=== PATIENT | female | born 1950 | race Caucasian/White ===

== ENCOUNTER 2018-11-23 11:21 | Inpatient (IN) | payer OTHER, MEDICAID ==
[~2018-11-23] VITALS: Ht 152.4 cm; Wt 128.8 kg
[2018-11-23 11:21] VITALS: BP_SYST 144
--- NOTE | 2018-11-23 11:21 | NUR ---
BROUGHT IN BY [facility] AND [facility]ACED IN BED #6, REPORT GIVEN TO DHRUV
--- NOTE | 2018-11-23 12:16 | NUR ---
Patient transported to radiology via gurney, accompanied by sprinkler repair technician.
--- NOTE | 2018-11-23 12:21 | NUR ---
Returned from radiology, back to [facility].
--- NOTE | 2018-11-23 12:24 | NUR ---
Patient is awake, alert, and oriented x4. Patient reports she was at her PMD office, felt dizzy and almost passed out. Her PMD instructed her to come to the hospital to rule out sepsis. Patient arrived via ambulance.
--- NOTE | 2018-11-23 12:39 | NUR ---
Patient was helped to restroom and instructed that we needed a urine sample.
[2018-11-23 13:05] LABS: BILIRUBIN,URINE NEGATIVE (NEGATIVE); BLOOD, URINE NEGATIVE (NEGATIVE); CLARITY/URINE CLEAR (CLEAR); COLOR,URINE YELLOW (YELLOW); GLUCOSE,URINE NEGATIVE (NEGATIVE); KETONES,URINE NEGATIVE (NEGATIVE); LEUKOCYTE ESTERASE ,URINE 1+ (NEGATIVE); NITRITE, URINE POSITIVE (NEGATIVE); PROTEIN URINE NEGATIVE (NEGATIVE); UROBILINOGEN,URINE 0.2 (0.2-1.0)
[2018-11-23 13:07] LABS: BASOPHILS # (AUTO) 0.1 K/uL (0.0-0.2); BASOPHILS % (AUTO) 0.4 % (0.0-2.0); EOSINOPHILS # (AUTO) 0.1 K/uL (0.0-0.4); EOSINOPHILS % (AUTO) 0.6 % (0.0-4.0); HEMATOCRIT 40.4 % (36-48); LYMPHOCYTES # (AUTO) 3.2 K/uL (1.0-5.5); LYMPHOCYTES % (AUTO) 15.9 % (20.5-51.5); MEAN CORPUSCULAR HEMOGLOBIN 29 pg (27-31); MEAN CORPUSCULAR HGB CONC 32 % (32-36); MEAN CORPUSCULAR VOLUME 89 fL (79.0-98.0); MONOCYTES # (AUTO) 1.4 K/uL (0.0-1.0); MONOCYTES % (AUTO) 6.9 % (1.7-9.3); NEUTROPHILS # (AUTO) 15.2 K/uL (1.8-7.7); NEUTROPHILS % (AUTO) 76.2 % (40.0-70.0); PLATELET COUNT (AUTO) 391 K/uL (130-430); RED BLOOD CELL COUNT(AUTO) 4.53 MIL/uL (4.2-6.2)
[2018-11-23 13:13] LABS: CREATININE 1.48 mg/dL (0.55-1.30); POTASSIUM 3.4 mmol/L (3.5-5.1)
[2018-11-23 13:16] LABS: INR 0.9 (0.8-1.2); PROTHROMBIN TIME 9.6 SECS (9.5-12.5)
[2018-11-23 13:18] LABS: ALBUMIN 3.6 g/dL (3.4-4.8); TOTAL BILIRUBIN 0.5 mg/dL (0.0-1.0)
[2018-11-23 13:28] LABS: BACTERIA,URINE MODERATE /HPF (None Seen); RBC,URINE 0-3 /HPF (0-3)
[2018-11-23 13:29] LABS: MUCUS,URINE None Seen /LPF (None Seen)
[2018-11-23] MEDS ORDERED: cefTRIAXone 1 GM IVPB PREMIX 50 ML IV ONE (13:45)
[2018-11-23] MEDS ORDERED: NACL 0.9% 2,000 ML IV ONE (13:45)
--- NOTE | 2018-11-23 13:59 | NUR ---
Pt reports she is full code.
[2018-11-23] MEDS ORDERED: LIP20 PO (14:13)
[2018-11-23] MEDS ORDERED: LISI10TA5 PO (14:13)
[2018-11-23] MEDS ORDERED: LOPE2CAP PO (14:13)
[2018-11-23] MEDS ORDERED: FURO80TA86 PO (14:13)
[2018-11-23] MEDS ORDERED: ASA81 PO (14:13)
[2018-11-23] MEDS ORDERED: ACET-2766 PO (14:13)
[2018-11-23] MEDS ORDERED: CHOL500037 PO (14:13)
[2018-11-23] MEDS ORDERED: LEVE750T4 PO (14:13)
[2018-11-23] MEDS ORDERED: FERR-69 PO (14:13)
[2018-11-23] MEDS ORDERED: BISA5TAB10 PO (14:13)
[2018-11-23] MEDS ORDERED: ALLO300T2 PO (14:13)
[2018-11-23] MEDS ORDERED: TRAM100T34 PO (14:13)
[2018-11-23] MEDS ORDERED: RANI-362 PO (14:13)
--- NOTE | 2018-11-23 14:17 | NUR ---
Medication reconciliation completed with information provided by pt. Any prior medication reconciliation on file was reviewed and corrected.
--- NOTE | 2018-11-23 14:38 | NUR ---
Patient will be admitted to care of Dr. Luu. Admitted to medsurg unit. Will go to room 134A. Belongings list completed. Summary report printed. Report will be given at bedside.
--- NOTE | 2018-11-23 14:53 | NUR ---
Patient transferred via SHIRA vaughn, RN. Report given to Queenie Hernandez RN for continuation of care.
--- NOTE | 2018-11-23 15:09 | NUR ---
ADMISSION: The patient, SAY HARRISON, 67 y/o, F admitted by JINNY HOPKINS MD, was given written information regarding hospital policies, unit procedures and contact persons.
[2018-11-23 15:10] VITALS: BP_SYST 134
[2018-11-23] MEDS: NACL 0.9% 1,000 ML IV SCH ×2 (15:20→18:37)
--- NOTE | 2018-11-23 15:49 | NUR ---
notes- in bed, watching tv. ordered snacks for patient. has mild pain on her back and neck. denies any chest pain or shortness of breath. oriented to call light use, phone and bathroom. safety precaution observed. enc. to call for help as needed.
[2018-11-23] MEDS ORDERED: ACETAMINOPHEN 325 MG TABLET PO PRN (16:15)
[2018-11-23] MEDS ORDERED: cloNIDine HCL 0.1 MG TABLET PO PRN (16:15)
[2018-11-23] MEDS ORDERED: hydrALAZINE HCL 20 MG/ML VIAL IVP PRN (16:15)
[2018-11-23] MEDS ORDERED: METOCLOPRAMIDE HCL 10 MG/2 ML VIAL IVP PRN (16:15)
[2018-11-23] MEDS ORDERED: BISACODYL 5 MG TABLET.DR (DULCOLAX) PO PRN (16:15)
[2018-11-23] MEDS ORDERED: ONDANSETRON HCL 4 MG/2 ML VIAL IVP PRN (16:15)
[2018-11-23 16:58] VITALS: BP_SYST 132
--- NOTE | 2018-11-23 18:53 | NUR ---
notes- In bed, denies any pain or discomfort. IVF infusing well. ambulate with assistance. all needs meet. needs attended. will endorse.
--- NOTE | 2018-11-23 19:50 | NUR ---
PM SHIFT ASSESSMENT Received patient sitting up in bed, aox4, vitals stable, denies any pain at this time, on room air, IV line to right ac intact and patent, IVF infusing. Plan of care discussed with patient, verbalized understanding, compliant, assisted to bathroom, steady gait noted, oriented to use call light for nurse assistance, call light within reach, safety and fall precautions in place, will monitor.
[2018-11-23 19:55] VITALS: BP_SYST 135
[2018-11-23] MEDS: levETIRAcetam 500 MG TABLET PO SCH (20:08)
[2018-11-23] MEDS: ATORVASTATIN 20 MG TABLET PO SCH (20:09)
--- NOTE | 2018-11-23 20:30 | NUR ---
RN ROUNDS Patient awake, assisted to bathroom again, steady gait noted, administered scheduled home medications, educated on use and side effects of each medication. Patient verbalized understanding.
--- NOTE | 2018-11-23 21:12 | NUR ---
PAGED PAGED DOCTOR VILA FOR ORDERS
--- NOTE | 2018-11-23 21:30 | NUR ---
Spoke to Dr. Barnes regarding patient has a history of diabetes, ACHS accu check ordered with regular insulin sliding scale.
[2018-11-23] MEDS ORDERED: D5W 1,000 ML IV PRN (21:37)
[2018-11-23] MEDS ORDERED: DEXTROSE 50% JECT 50 ML DISP.SYRIN IVP PRN (21:45)
[2018-11-23] MEDS ORDERED: GLUCOSE 15 GM GEL (in 37.5 GM TUBE) PO PRN (21:45)
--- NOTE | 2018-11-23 22:50 | NUR ---
RN ROUNDS Patient resting quietly in bed, in no distress, IVF infusing, call light remains within reach, will continue to monitor.
[2018-11-24] VITALS (7 sets, daily range): BP systolic 110–151
[2018-11-24] MEDS: MORPHINE 4 MG/ML INJ. SYRINGE IVP PRN ×4 (00:22→21:22)
--- NOTE | 2018-11-24 01:12 | NUR ---
RN ROUNDS Patient was c/o of generalized pain, medicated with morphine 2 mg IVP for pain management, patient sleeping at this time. Respirations even and unlabored, educated on side effects of morphine, patient verbalized understanding earlier. Vital signs stable. Safety precautions in place, call light remains within reach, will monitor.
--- NOTE | 2018-11-24 03:09 | NUR ---
RN ROUNDS Patient sleeping, respirations even and unlabored, IVF infusing, call light remains within reach, safety precautions in place, will continue to monitor.
[2018-11-24] MEDS: INSULIN REGULAR, HUMAN 100 UNITS/ML, 10 ML VIAL (novoLIN R) SUBCUT PRN ×4 (06:02→21:36)
[2018-11-24] MEDS: NACL 0.9% 1,000 ML IV SCH ×2 (06:03→15:48)
--- NOTE | 2018-11-24 06:47 | NUR ---
RN ROUNDS Patient awake and was c/o of generalized pain, medicated with morphine 2 mg IVP for pain management, re-educated on side effects of morphine, patient verbalized understanding earlier. blood sugar check this am of 245, covered with regular insulin sliding scale. Needs attended to, Safety precautions maintained, call light remains within reach, will monitor until report given to am nurse.
[2018-11-24 07:03] LABS: ALBUMIN 2.6 g/dL (3.4-4.8); CALCIUM 8.6 mg/dL (8.4-11.0); CREATININE 1.15 mg/dL (0.55-1.30); POTASSIUM 3.7 mmol/L (3.5-5.1); TOTAL BILIRUBIN 0.4 mg/dL (0.0-1.0)
[2018-11-24 07:14] LABS: BASOPHILS % (AUTO) 0.3 % (0.0-2.0); EOSINOPHILS # (AUTO) 0.1 K/uL (0.0-0.4); EOSINOPHILS % (AUTO) 0.7 % (0.0-4.0); HEMATOCRIT 33.3 % (36-48); HEMOGLOBIN 10.6 g/dL (12.0-16.0); LYMPHOCYTES # (AUTO) 2.7 K/uL (1.0-5.5); LYMPHOCYTES % (AUTO) 19.1 % (20.5-51.5); MEAN CORPUSCULAR HEMOGLOBIN 28 pg (27-31); MEAN CORPUSCULAR HGB CONC 32 % (32-36); MEAN CORPUSCULAR VOLUME 89 fL (79.0-98.0); MONOCYTES # (AUTO) 0.8 K/uL (0.0-1.0); MONOCYTES % (AUTO) 5.9 % (1.7-9.3); NEUTROPHILS # (AUTO) 10.4 K/uL (1.8-7.7); PLATELET COUNT (AUTO) 243 K/uL (130-430); RED BLOOD CELL COUNT(AUTO) 3.75 MIL/uL (4.2-6.2); RED CELL DISTRIBUTION WIDTH 14.8 % (9.0-15.0)
[2018-11-24] MEDS: ATORVASTATIN 20 MG TABLET PO SCH ×2 (08:24→21:25)
[2018-11-24] MEDS: ASPIRIN 81 MG TAB.CHEW PO SCH (08:24)
[2018-11-24] MEDS: levETIRAcetam 500 MG TABLET PO SCH ×2 (08:24→21:24)
--- NOTE | 2018-11-24 08:30 | NUR ---
Mobility Able to get out of bed to bathroom using holding IV pole , stanby assist by the RN tolerates well with out dizziness.
[2018-11-24] MEDS ORDERED: cefTRIAXone 1 GM VIAL IM ONE (09:00)
[2018-11-24] MEDS: cefTRIAXone 1 GM IVPB PREMIX 50 ML IV SCH (09:24)
--- NOTE | 2018-11-24 10:12 | NUR ---
Afebrile due antibiotic completed with out adverse reaction.
--- NOTE | 2018-11-24 10:25 | NUR ---
CONSULTATION PAGED REASON FOR CONSULTATION: DIZZINESS REQUESTING DR: DR HOPKINS CONSULTING DR: DR GOLDEN SPOKE WITH BUSTER
--- NOTE | 2018-11-24 10:28 | NUR ---
CONSULTATION PAGED REASON FOR CONSULTATION: RENAL FAILURE REQUESTING DR: DR HOPKINS CONSULTING DR: DR DALY SPOKE WITH MARISSA [phone]
--- NOTE | 2018-11-24 15:00 | NUR ---
PATIENT RESTING: Patient resting quietly. No acute distress noted. Vital signs within normal range.
--- NOTE | 2018-11-24 18:35 | NUR ---
Patient is afebrile, on hydration, fall safety/precaution initiated verbalized understanding
--- NOTE | 2018-11-25 01:27 | NUR ---
PAGED I PAGED DR. HOPKINS @ [id number] I SPOKE WITH ERIKA EATON
--- NOTE | 2018-11-25 02:38 | NUR ---
PAGED I PAGEDDYazmin HOPKINS @ [phone] JOHN I SPOKE WITH CAITLIN EATON I CALLED DORA BECAUSE SHE COVERS FOR DR. HOPKINS I CALLED DR. HOPKINS @ [phone] HE DID NOT CALL BACK YET REASON WHY I CALLED DR. JOHN
--- NOTE | 2018-11-25 02:50 | NUR ---
PAGED I PAGED DR. HOPKINS @ [phone] I SPOKE WITH ERIKA EATON THIS IS THE SECOND PAGE
[2018-11-25] MEDS ORDERED: TEMAZEPAM 15 MG CAPSULE PO PRN (03:45)
[2018-11-25] MEDS: MORPHINE 4 MG/ML INJ. SYRINGE IVP PRN ×3 (05:00→20:09)
[2018-11-25] MEDS: NACL 0.9% 1,000 ML IV SCH (05:03)
[2018-11-25] MEDS: INSULIN REGULAR, HUMAN 100 UNITS/ML, 10 ML VIAL (novoLIN R) SUBCUT PRN ×4 (05:14→20:12)
--- NOTE | 2018-11-25 06:30 | NUR ---
pt.has presented stable status w/in the shift.pt.presents s/p d/c pollack catheter.pt.had ambulated to the restroom to urinate. no dysuria/retention present.pt. had c/o pain:i have administered morphine;4mg ivp x2 dose.pt.presents general status table.respiratory status stable@room air:02-sat%=96%.i have assessed the blood glucose:values.257mg/dl.i have administered 6-units;regular insulin.pt.had been provided snacks/beverages w/in the shift.pt.capable to reposition self.call light/telephone placed w/in the reach of the pt.
[2018-11-25 06:56] LABS: BASOPHILS # (AUTO) 0.1 K/uL (0.0-0.2); BASOPHILS % (AUTO) 0.5 % (0.0-2.0); EOSINOPHILS # (AUTO) 0.2 K/uL (0.0-0.4); EOSINOPHILS % (AUTO) 1.6 % (0.0-4.0); HEMATOCRIT 30.6 % (36-48); HEMOGLOBIN 9.8 g/dL (12.0-16.0); LYMPHOCYTES # (AUTO) 2.5 K/uL (1.0-5.5); LYMPHOCYTES % (AUTO) 22.2 % (20.5-51.5); MEAN CORPUSCULAR HEMOGLOBIN 28 pg (27-31); MEAN CORPUSCULAR HGB CONC 32 % (32-36); MEAN CORPUSCULAR VOLUME 89 fL (79.0-98.0); MONOCYTES # (AUTO) 0.8 K/uL (0.0-1.0); MONOCYTES % (AUTO) 7.3 % (1.7-9.3); NEUTROPHILS # (AUTO) 7.7 K/uL (1.8-7.7); NEUTROPHILS % (AUTO) 68.4 % (40.0-70.0); PLATELET COUNT (AUTO) 213 K/uL (130-430); RED BLOOD CELL COUNT(AUTO) 3.45 MIL/uL (4.2-6.2); RED CELL DISTRIBUTION WIDTH 14.8 % (9.0-15.0); WHITE BLOOD COUNT (AUTO) 11.2 K/uL (4.8-10.8)
[2018-11-25 07:49] LABS: ALBUMIN 2.3 g/dL (3.4-4.8); CALCIUM 8.9 mg/dL (8.4-11.0); CREATININE 1.07 mg/dL (0.55-1.30); POTASSIUM 4.4 mmol/L (3.5-5.1); THYROID STIMULATING HORMONE 2.39 uIu/mL (0.34-4.82); TOTAL BILIRUBIN 0.3 mg/dL (0.0-1.0)
[2018-11-25 07:54] VITALS: BP_SYST 125
--- NOTE | 2018-11-25 08:00 | NUR ---
Opening notes Received pt in bed, pt is aaox4, denies pain, no resp distress. iv fluids infusing well. no s/s of infiltration, no swelling. safety precaution in place. call light in reach. pt encouraged to call for assist and pain meds or any concerns. will cont to monitor.
[2018-11-25] MEDS: ATORVASTATIN 20 MG TABLET PO SCH ×2 (08:55→20:08)
[2018-11-25] MEDS: cefTRIAXone 1 GM IVPB PREMIX 50 ML IV SCH (08:55)
[2018-11-25] MEDS: ASPIRIN 81 MG TAB.CHEW PO SCH (08:55)
[2018-11-25] MEDS: levETIRAcetam 500 MG TABLET PO SCH ×2 (08:56→20:08)
[2018-11-25 13:00] VITALS: BP_SYST 152
[2018-11-25 16:52] VITALS: BP_SYST 147
--- NOTE | 2018-11-25 16:59 | NUR ---
Dietitian Recommendations * Recommend CCHO, 2 gm Na diet LP, RD Please refer to Nutrition Assessment for details.
--- NOTE | 2018-11-25 19:19 | NUR ---
closing notes, pt has been stable, given x1 pain med with good pain relief. no fever. blood sugar checked. insulin given. pt able to provide urine sample. endorsed to night rn.
[2018-11-25 19:38] LABS: BILIRUBIN,URINE NEGATIVE (NEGATIVE); CLARITY/URINE CLEAR (CLEAR); COLOR,URINE YELLOW (YELLOW); GLUCOSE,URINE 1+ (NEGATIVE); KETONES,URINE NEGATIVE (NEGATIVE); LEUKOCYTE ESTERASE ,URINE NEGATIVE (NEGATIVE); NITRITE, URINE NEGATIVE (NEGATIVE); PH,URINE 5.5 (5.0-8.0); PROTEIN URINE NEGATIVE (NEGATIVE); UROBILINOGEN,URINE 0.2 (0.2-1.0)
[2018-11-25 19:39] LABS: BLOOD, URINE TRACE (NEGATIVE)
[2018-11-25 19:59] LABS: WBC,URINE 0-3 /HPF (0-3)
[2018-11-25 20:00] VITALS: BP_SYST 142
[2018-11-25 20:00] LABS: BACTERIA,URINE FEW /HPF (None Seen)
--- NOTE | 2018-11-25 20:00 | NUR ---
Initial Notes Received patient resting in bed, awake, alert, oriented. Patient denies any acute distress at this time. Vital signs stable. Breathing is even and unlabored. IV site patent/clean/dry. Needs addressed. Educated patient regarding use of call light for assistance and fall precautions, patient verbalized understanding. Call light in hand, fall precautions in place.
--- NOTE | 2018-11-25 22:01 | NUR ---
Nursing Notes Patient resting in bed, awake. Patient denies any acute distress or pain at this time. Breathing is even and unlabored. Previously medicated patient for sleep per MD orders. Needs addressed, assisted patient to restroom for toileting needs. Call light in hand, fall and seizure precautions in place. Will continue to monitor.
--- NOTE | 2018-11-26 00:03 | NUR ---
Nursing Notes Patient resting in bed with eyes closed. No acute distress noted, breathing is even and unlabored. Call light in hand, fall and seizure precautions in place.
[2018-11-26 01:25] VITALS: BP_SYST 130
--- NOTE | 2018-11-26 02:14 | NUR ---
Nursing Notes Patient resting in bed with eyes closed. No distress noted, breathing is even and unlabored. Call light in hand, fall and seizure precautions in place. Will continue to monitor.
--- NOTE | 2018-11-26 04:04 | NUR ---
Nursing Notes Patient resting in bed with eyes closed, easily aroused upon nurse entering room. Patient denies any acute distress or pain at this time. Breathing is even and unlabored. Assisted patient to restroom for toileting needs. Needs addressed. Call light in hand, fall and seizure precautions in place.
[2018-11-26] MEDS: INSULIN REGULAR, HUMAN 100 UNITS/ML, 10 ML VIAL (novoLIN R) SUBCUT PRN ×2 (06:03→11:49)
--- NOTE | 2018-11-26 06:38 | NUR ---
Closing Notes Patient resting in bed with eyes closed, easily aroused. Patient denies any acute distress or pain at this time. Breathing is even and unlabored. IV site patent/clean/dry, no S/S infection/infiltration noted. Needs addressed throughout shift. Call light in hand, fall and seizure precautions in place. Will continue to monitor for changes and safety, and endorse all patient care/needs to oncoming nurse. No seizure activity noted/reported throughout shift.
--- NOTE | 2018-11-26 07:55 | NUR ---
opening note patient is resting in bed eating breakfast, A&Ox4, assessment completed, educated on plan of care and call light system, patient verbalized understanding, no signs of respiratory distress, patient complaining of neck pain, no other needs addressed at this time, bed in the lowest position, side rails up with seizure precautions, allergy band on, call light within reach, bed alarm on.
[2018-11-26 08:00] VITALS: BP_SYST 158
[2018-11-26] MEDS: ASPIRIN 81 MG TAB.CHEW PO SCH (08:14)
[2018-11-26] MEDS: ATORVASTATIN 20 MG TABLET PO SCH (08:14)
[2018-11-26] MEDS: levETIRAcetam 500 MG TABLET PO SCH (08:14)
[2018-11-26] MEDS: cefTRIAXone 1 GM IVPB PREMIX 50 ML IV SCH (08:14)
[2018-11-26] MEDS: MORPHINE 4 MG/ML INJ. SYRINGE IVP PRN (08:19)
[2018-11-26 08:35] VITALS: BP_SYST 158
--- NOTE | 2018-11-26 10:32 | NUR ---
rounds patient is resting in bed, we talked to her son on the phone to ask what time he can pick her up, he states he will call back before he is on his way, no other needs addressed at this time, fall/safety precautions in place, seizure precautions in place.
[2018-11-26 12:46] VITALS: BP_SYST 139
--- NOTE | 2018-11-26 14:20 | NUR ---
D/C Patient Patient given medication reconciliation form and D/C instructions. Exit Care provided. Patient verbalized understanding. MD discussed with patient the results and treatment provided. Ambulatory with steady gait for discharge to home. Patient in stable condition, ID band removed. IV catheter removed, intact and dressing applied, no active bleeding. Rx of Macrobid given. Patient educated on pain management. All belongings sent with patient.
--- NOTE | 2018-12-02 11:04 | NUR ---
Discharge Follow Up Phone Call WIRE BRUSHER phoned patient, . Patient stated she was doing okay but tired. She stated that she had three appointments today. She is making follow up appointments with the director of professional services, crayon molding machine operator, neurologist and asked if she needed one with her PCP. WIRE BRUSHER recommended she also visit her PCP for update on current medication regimen and recent hospitalization. Patient agreed. Her son provides transportation. Her son is her caregiver and they have [employer]. Patient filled her Macrobid prescription and is taking her medications as directed. No other questions or concerns.
== END 2018-11-26 14:20 | disposition home or self-care (01) | DRG 871 ==
LOC: SED 11:21 → SMU 14:05
PROVIDERS: ADMIT Internal Medicine Hospice and Palliative Medicine; ATTEND Internal Medicine Hospice and Palliative Medicine
DX: A41.9 Sepsis, unspecified organism (principal); N17.0 Acute kidney failure with tubular necrosis; N39.0 Urinary tract infection, site not specified; M19.90 Unspecified osteoarthritis, unspecified site; I12.9 Hypertensive chronic kidney disease with stage 1 through stage 4 chronic kidney disease, or unspecified chronic kidney disease; E11.22 Type 2 diabetes mellitus with diabetic chronic kidney disease; G40.909 Epilepsy, unspecified, not intractable, without status epilepticus; E66.01 Morbid (severe) obesity due to excess calories; N18.3 Chronic kidney disease, stage 3 (moderate); T50.2X5A Adverse effect of carbonic-anhydrase inhibitors, benzothiadiazides and other diuretics, initial encounter; Y92.89 Other specified places as the place of occurrence of the external cause; Z90.710 Acquired absence of both cervix and uterus; Z83.3 Family history of diabetes mellitus; Z88.8 Allergy status to other drugs, medicaments and biological substances; Z91.041 Radiographic dye allergy status; Z90.49 Acquired absence of other specified parts of digestive tract; Z84.89 Family history of other specified conditions; Z99.3 Dependence on wheelchair
CPT/HCPCS: 36415; 70450-TC; 71045; 80053; 80061; 81000-TC; 82962; 83605; 83880; 84443-TC; 84484; 85025; 85610-TC; 85730-TC; 87040-TC; 87086; 87186-TC; 93005; 93306; 96361; 96365; 99291; J0696; J2270; J7030